=== PATIENT | male | born 1995 | race Native Hawaiian/Other Pacific Islander ===

== ENCOUNTER 2022-03-29 19:13 | Emergency (ER) | payer OTHER ==
[~2022-03-29] VITALS: Ht 185.4 cm; Wt 111.1 kg
[2022-03-29 22:25] VITALS: BP 134/81; TEMP 97.8
== END 2022-03-29 22:30 | disposition home or self-care (01) ==
LOC: ED 19:13
DX: M25.551 Pain in right hip (principal); X50.1XXA Overexertion from prolonged static or awkward postures, initial encounter; Y92.89 Other specified places as the place of occurrence of the external cause
CPT/HCPCS: 96372; 99283; J1885; J2270; J2360; J2405